=== PATIENT | male | born 1995 | race Caucasian/White ===

== ENCOUNTER 2024-05-12 11:34 | Emergency (ER) | payer MEDICAID ==
[~2024-05-12] VITALS: Ht 185.4 cm; Wt 81.0 kg
[~2024-05-12 11:34] MED LIST: NO HOME MEDS
[2024-05-12 11:39] VITALS: BP 143/60; PULSE 118; RESP 16; O2SAT 99
[2024-05-12] MEDS: LIDOcaine 1% W/epiNEPHrine 1:100,000 20ml vial IJ ONE (12:10)
[2024-05-12 12:48] LABS: BASOPHILS # (AUTO) 0.1 X10'3 (0-0.2); BASOPHILS % (AUTO) 0.6 % (0-1); EOSINOPHILS # (AUTO) 0.1 X10'3 (0-0.9); EOSINOPHILS % (AUTO) 1.2 % (0-6); HEMATOCRIT 44.9 % (42.0-52.0); HEMOGLOBIN 14.7 g/dl (14.0-17.9); LYMPHOCYTES # (AUTO) 1.4 X10'3 (1.1-4.8); MEAN CORPUSCULAR HEMOGLOBIN 27.9 PG (27.0-31.0); MEAN CORPUSCULAR HGB CONC 32.7 g/dL (33.0-36.5); MEAN CORPUSCULAR VOLUME 85.3 FL (78-98); MEAN PLATELET VOLUME 8.7 FL (7.4-10.4); MONOCYTES # (AUTO) 0.9 X10'3 (0-0.9); MONOCYTES % (AUTO) 10.1 % (2-12); NEUTROPHILS # (AUTO) 6.7 X10'3 (1.8-7.7); NEUTROPHILS % (AUTO) 73.1 % (42-75); PLATELET COUNT 249 X10'3 (140-440); RED BLOOD COUNT 5.27 X10'6 (4.70-6.10); RED CELL DISTRIBUTION WIDTH 14.6 % (11.5-14.5); WHITE BLOOD COUNT 9.2 X10'3 (4.5-11.0)
[2024-05-12] MEDS: TETanus/Pertussis (Acell)/Diphther VAC/PF (Tdap-Adult) 0.5ml syringe IMVAC ONE (12:53)
[2024-05-12 12:56] LABS: ALANINE AMINOTRANSFERASE 24 U/L (12-78); ALBUMIN 3.6 G/DL (3.4-5.0); ALKALINE PHOSPHATASE 67 IU/L (46-116); ANION GAP 6 (8-16); ASPARTATE AMINO TRANSFERASE 14 U/L (10-37); BILIRUBIN,TOTAL 0.5 MG/DL (0.1-1.0); BLOOD UREA NITROGEN 15 MG/DL (7-18); BUN/CREATININE RATIO 19.2 (10.0-20.0); CALCIUM 8.9 MG/DL (8.5-10.1); CHLORIDE 106 MMOL/L (99-107); CREATININE 0.78 MG/DL (0.60-1.10); GLUCOSE 72 MG/DL (70-104); POTASSIUM 4.2 MMOL/L (3.5-5.1); SODIUM 141 MMOL/L (135-145); TOTAL CARBON DIOXIDE 29.2 MMOL/L (24-32); TOTAL PROTEIN 7.1 G/DL (6.4-8.2); eCRCL 161 ML/MIN; eGFR > 90 ML/MIN
[2024-05-12] MEDS ORDERED: CEPH-585 PO (13:14)
[2024-05-12] MEDS ORDERED: SULF1TAB45 PO (13:14)
[2024-05-12] MEDS ORDERED: NAPR-56 PO (13:14)
[2024-05-12] MEDS: ampicillin/sulbac 3gm/NS 100ml 100 ML IV STA (13:25)
[2024-05-12 13:30] VITALS: TEMP 98
== END 2024-05-12 14:01 | disposition home or self-care (01) ==
LOC: ER 11:36
DX: M70.21 Olecranon bursitis, right elbow (principal); F17.200 Nicotine dependence, unspecified, uncomplicated; Z90.49 Acquired absence of other specified parts of digestive tract
CPT/HCPCS: 20605; 36415; 73080; 80053; 83605; 84145; 85025; 86140; 90471; 90715; 96365; 99284; A6266; J0295; A6258; A6449

== ENCOUNTER 2024-08-16 16:59 | Emergency (ER) | payer MEDICAID ==
[~2024-08-16] VITALS: Ht 185.4 cm; Wt 68.0 kg
[~2024-08-16 16:59] MED LIST changes: +IBUP-864 PO
[2024-08-16 17:02] VITALS: BP 137/72; PULSE 110; RESP 15; O2SAT 97
--- NOTE | 2024-08-16 17:05 | Physician Documentation ---
History of Present Illness ~ Chief Complaint: Abscess Stated Complaint: SPIDER BITE Time Seen by MD: 17:04 Primary Medical Doctor: [facility] Source: patient, RN/ HPI Patient is seen today with the nurse with complaints of painful lesion with swelling and erythema and warmth of his left inner thigh that started four days ago. Patient denies any fevers or chills. He has no other concern or complaint at this time. He denies any chest pain or shortness of breath or abdominal pain or nausea, vomiting, diarrhea. Tetanus Within 5 Years: Yes Medication Reconciliation Allergies: Coded Allergies: No Known Allergies (Unverified , 08/16/24) Miscellaneous Medications Home Med List (No Home Medications), (Reported) Discontinued Medications Ibuprofen (Ibu), 1 TAB PO Q8H Discontinued Reason: patient no longer taking Past Medical History Past Medical History: No Pertinent History Past Surgical History: appendectomy Alcohol Use: None Lives with: Mother Lives In: Home Occupation: student, child Review of Systems Constitutional: Denies: chills, fever, weakness Eyes: Denies: pain, blurred vision ENT: Denies: ear pain, nose pain, throat pain, mouth pain Respiratory: Denies: cough, shortness of breath Cardiovascular: Denies: chest pain, palpitations Gastrointestinal: Denies: abdominal pain, nausea, vomiting Genitourinary: Denies: burning, dysuria Male Genitalia: Denies: penile discharge, testicular pain Neurological: Denies: headache, dizziness Musculoskeletal: Denies: pain, swelling Integumentary: Denies: rash, lesions Allergic/Immunologic: Denies: hives, itching Hematologic/Lymphatic: Denies: no symptoms reported Psychiatric: Denies: depression, anxiety Physical Exam Vital Signs: Temperature: 96.8, Source: Temporal, Heart Rate: 110, Respiratory Rate: 15, BP: 137/72, Pulse Oximetry: 97, Weight: 68.050 Physical Exam General: Awake and Alert, no acute distress. HEENT: Conjunctiva pink, Sclera clear, Mucus Membranes moist. Neck: Supple without masses and tenderness. Resp: Unlabored. Lungs clear to auscultation bilaterally. Heart: Regular Rate and rhythm, normal S1 and S2 without murmur, rub or gallop. Abdomen: Soft and non tender no organomegaly Extremities: No cyanosis,clubbing or edema. Skin: Patient on exam has significant area of erythema and induration and swelling of left inner thigh. Induration measures over 10 cm. I do not appreciate any fluctuant mass. Progress Results/Orders Results/Orders Vital Signs 08/16/24 17:02 Temp 96.8 Pulse 110 Resp 15 B/P (MAP) 137/72 Pulse Ox 97 Medical Decision Making Findings Patient is seen today with the nurse with complaints of painful lesion with swelling and erythema and warmth of his left inner thigh that started four days ago. Patient denies any fevers or chills. He has no other concern or complaint at this time. He denies any chest pain or shortness of breath or abdominal pain or nausea, vomiting, diarrhea. Patient was given dose of Bactrim DS in the ED tonight. Prescription of Bactrim DS sent to patient's pharmacy to be taken twice a day by mouth for 10 days. Shared decision-making utilized today. Patient will monitor closely for resolution of erythema or redness and induration and pain and swelling. Patient will return to ED in two days for re-evaluation. Patient will perform warm compress at home two to 3 times a day. Departure Disposition: HOME / SELF CARE / HOMELESS Impression: Primary Impression: Abscess Additional Impression: Cellulitis Qualified Codes: L03.116 - Cellulitis of left lower limb Condition: Stable Discharge Instructions: Skin Abscess, [id number] Additional Instructions: Patient was given dose of Bactrim DS in the ED tonight. Prescription of Bactrim DS sent to patient's pharmacy to be taken twice a day by mouth for 10 days. Shared decision-making utilized today. Patient will monitor closely for resolution of erythema or redness and induration and pain and swelling. Patient will return to ED in two days for re-evaluation. Patient will perform warm compress at home two to 3 times a day. Referrals: NO PRIMARY CARE PROVIDER (PCP) Prescriptions Sulfamethoxazole/Trimethoprim (Bactrim Ds Tablet) 800 Mg-160 Mg Tablet 1 TAB PO Q12H for 10 Days, #20 TAB Prov: CHEPE KEANE 08/16/24 Signature Scribe Signature: No scribe Attestation: No scribe CHEPE KEANE Aug 16, 2024 17:05
[2024-08-16] MEDS ORDERED: SULF1TAB49 PO (17:55)
[2024-08-16] MEDS: sulfamethoxazole/trimethoprim DS (800/160mg) tablet PO STA (18:11)
[2024-08-16 18:18] VITALS: TEMP 96.8
== END 2024-08-16 18:19 | disposition home or self-care (01) ==
LOC: ER 17:00
DX: L02.416 Cutaneous abscess of left lower limb (principal); L03.116 Cellulitis of left lower limb; Z90.49 Acquired absence of other specified parts of digestive tract
CPT/HCPCS: 99283

== ENCOUNTER 2024-08-18 15:20 | Emergency (ER) | payer MEDICAID ==
[~2024-08-18] VITALS: Ht 185.4 cm; Wt 82.1 kg
[~2024-08-18 15:20] MED LIST changes: -IBUP-864 PO; +SULF1TAB49 PO
[2024-08-18 15:40] VITALS: BP 151/91; PULSE 109; RESP 17; TEMP 98.8; O2SAT 98
--- NOTE | 2024-08-18 15:46 | Physician Documentation ---
History of Present Illness ~ Stated Complaint: LEG PAIN Time Seen by MD: 16:55 Primary Medical Doctor: [facility] Source: patient Mode of Arrival: POV Exam Limitations: no limitations HPI 29-year-old male recently seen in the emergency department for what was suspected to be a spider bite to his left medial thigh being much larger and draining. Patient is continuing to take the Bactrim that was prescribed at that initial appointment. Patient is complaining of increased redness swelling and pain and drainage. Tetanus witin 5 years: Yes Medication Reconciliation Allergies: Coded Allergies: No Known Allergies (Unverified , 08/16/24) Scheduled Sulfamethoxazole/Trimethoprim (Bactrim Ds Tablet), 1 TAB PO Q12H Miscellaneous Medications Home Med List (No Home Medications), (Reported) Discontinued Medications Ibuprofen (Ibu), 1 TAB PO Q8H Discontinued Reason: patient no longer taking Past Medical History Past Medical History: No Pertinent History Past Surgical History: appendectomy Alcohol Use: None Lives with: Mother Lives In: Home Occupation: student, child Physical Exam General Appearance: alert, WD/WN, no apparent distress Legs: pain, soft tissue tenderness, swelling Legs Lips very large area of induration with a centralized open lesion draining purulent drainage erythema and golfing a significant portion of the left medial thigh and groin Progress Results/Orders Results/Orders Orders - CHRISTINA MONTANA PROJECT GEOPHYSICIST Cbc/Diff (08/18/24 15:44) Urinalysis, Cult If Indicated (08/18/24 15:44) Monitor (08/18/24 15:44) Oxygen (08/18/24 15:44) Saline Lock (08/18/24 15:44) BMP (08/18/24 15:44) Culture Blood (08/18/24 17:11) Procalcitonin (08/18/24 17:11) Lacticsepsis (08/18/24 17:11) Completed Orders - CHRISTINA MONTANA PROJECT GEOPHYSICIST Normal Saline 1000ml (Sodium Chloride 10 (08/18/24 17:15) Ceftriaxone 2gm/D5w 50ml Bag (Rocephin 2 (08/18/24 17:15) Vital Signs 08/18/24 15:40 Temp 98.8 Pulse 109 Resp 17 B/P (MAP) 151/91 Pulse Ox 98 O2 Flow Rate 0 Departure Time of Disposition: 18:57 Disposition: 07 LEFT AWOL/ELOPED Impression: Primary Impression: Wound Additional Impressions: Abscess Cellulitis Condition: Fair Referrals: NO PRIMARY CARE PROVIDER (PCP) Signature Scribe Signature: No scribe Attestation: The note accurately reflects work and decisions made by me.Christina Montana - MAINTENANCE SUPERVISOR 2ND SHIFT 08/18/24 18:56 CHRISTINA MONTANA NP Aug 18, 2024 15:46
[2024-08-18] MEDS ORDERED: CefTRIAXone 2gm/D5W 50ml BAG 50 ML IV ONE (17:15)
[2024-08-18] MEDS ORDERED: normal saline 1000ML IV soln IVB ONE (17:15)
== END 2024-08-18 19:19 | disposition left against medical advice (07) ==
LOC: ER 15:20
DX: S71.152A Open bite, left thigh, initial encounter (principal); L03.116 Cellulitis of left lower limb; Z90.49 Acquired absence of other specified parts of digestive tract; W57.XXXA Bitten or stung by nonvenomous insect and other nonvenomous arthropods, initial encounter; Y93.89 Activity, other specified; Y92.89 Other specified places as the place of occurrence of the external cause; Y99.8 Other external cause status
CPT/HCPCS: 99281

== ENCOUNTER 2024-10-12 17:29 | Emergency (ER) | payer MEDICAID ==
[~2024-10-12] VITALS: Ht 185.4 cm; Wt 69.3 kg
[~2024-10-12 17:29] MED LIST changes: -SULF1TAB49 PO
--- NOTE | 2024-10-12 18:00 | Physician Documentation ---
History of Present Illness Chief Complaint: See Chief Complaint Stated Complaint: LEG INFECTION Primary Medical Doctor: MELY ARROYO 9-year-old male presenting to the emergency department for evaluation of a wound to the anterior portion of his left thigh. Personally did have this wound x2 days. Patient reports that he has had other small areas of infection like this before. Patient denies any fevers nausea or vomiting or diarrhea at this time. Medication Reconciliation Allergies: Coded Allergies: No Known Allergies (Unverified , 08/16/24) Miscellaneous Medications Home Med List (No Home Medications), (Reported) Past Medical History Past Medical History: No Pertinent History Past Surgical History: appendectomy Alcohol Use: None Lives with: Mother Lives In: Home Occupation: student, child Physical Exam Vital Signs: Temperature: 98.0, Source: Temporal, Heart Rate: 80, Respiratory Rate: 15, BP: 121/51, Pulse Oximetry: 97, Weight: 69.300 Progress Results/Orders Results/Orders Vital Signs 10/12/24 17:52 Temp 98.0 Pulse 80 Resp 15 B/P (MAP) 121/51 Pulse Ox 97 Departure Referrals: NO PRIMARY CARE PROVIDER (PCP) BRIAN GONZALEZ OIL SEAL ASSEMBLER Oct 12, 2024 17:59
[2024-10-12 19:04] VITALS: BP 129/66; PULSE 86; RESP 16; TEMP 98; O2SAT 97
== END 2024-10-13 02:23 | disposition left against medical advice (07) ==
LOC: ER 17:30
DX: L03.116 Cellulitis of left lower limb (principal); Z90.49 Acquired absence of other specified parts of digestive tract; Z53.21 Procedure and treatment not carried out due to patient leaving prior to being seen by health care provider